=== PATIENT | male | born 1960 | race African-American/Black ===

== ENCOUNTER 2024-01-28 20:04 | Emergency (ER) | payer BC ==
[~2024-01-28] VITALS: Ht 182.9 cm; Wt 137.0 kg
[2024-01-28 20:49] VITALS: TEMP 98.7
[2024-01-28] MEDS: MORPHINE SULFATE 4 MG/ML INJ (FOR IV/IM USE) IV STA (22:37)
[2024-01-28] MEDS: ONDANSETRON HCL 4MG/2ML INJ IV STA (22:38)
[2024-01-28] MEDS ORDERED: ONDANSETRON HCL 4MG/2ML INJ IV ONE (22:45)
[2024-01-28 23:22] VITALS: O2SAT 95
[2024-01-28] MEDS: PROPOFOL 200MG/20ML VIAL IV ONE (23:34)
[2024-01-29] MEDS ORDERED: IBUP-2029 MT (00:34)
[2024-01-29 01:20] VITALS: BP 141/90; PULSE 88; RESP 16
== END 2024-01-29 01:34 | disposition home or self-care (01) ==
LOC: ER 20:04
DX: S43.005A Unspecified dislocation of left shoulder joint, initial encounter (principal); W18.39XA Other fall on same level, initial encounter; Y93.89 Activity, other specified; Y92.89 Other specified places as the place of occurrence of the external cause; Y99.8 Other external cause status
CPT/HCPCS: 73030; 23650; 96374; 96375; 99152; 99285; J2405; J2704; J2270; Z7610; A4565